=== PATIENT | female | born 1980 | race Caucasian/White ===

== ENCOUNTER 2022-07-16 08:28 | Emergency (ER) | payer MEDICAID, SELFPAY ==
[2022-07-16 08:37] VITALS: BP 131/82; PULSE 91; RESP 18; TEMP 37; O2SAT 97
--- NOTE | 2022-07-16 09:02 | NUR.NOTE ---
Nursing Note: negative for flu A and B, negative for covid per rapid in house.
--- NOTE | 2022-07-16 09:30 | ED.GENADUL_ITS ---
Discharge Plan Disposition Patient Disposition: HOME Condition: Stable Discharge Details Clinical Impression: URI (upper respiratory infection), Cerumen impaction ED Provider: Josemanuel Vincent Home Meds and New Rx's Prescriptions: New benzonatate 200 mg capsule 200 mg PO TID PRN (Reason: cough) Qty: 30 0RF Discharge Instructions Instructions: Impactaci?n de Cerumen (ED), Upper Respiratory Infection (ED) Additional Instructions: At this time your exam and history is consistent with a upper respiratory viral infection. Your symptoms will likely continue over the next 3 to 5 days and then slowly start improving. If you have any significant worsening of your symptoms after 10 days, return of fever, or any further concerns feel free to follow-up after fast, your primary care provider, or local urgent care. Otherwise you may continue to take [id number] medication as needed and Motrin will help with your ear pain. Referrals: Primary Care Provider [Outside] - 1 week (If not improving) Discharge Data Discharge Date/Time-TO BE ENTERED AT DEPARTURE: 07/16/22 10:14 Medical Decision Making Patient presenting to the emergency department for chief complaint of nasal congestion, sore throat and right ear pain. She does state some associated dry cough and generalized malaise with some headache. Physical exam consistent with upper respiratory tract infection likely viral in nature. staffing and scheduling coordinator initiated protocol for antigen testing and patient is negative for strep, influenza, and COVID. Strep testing was sent for culture. Did need to irrigate patient ears due to cerumen impaction which showed no acute signs of infection. Discussed with patient conservative measures for treatment of viral illness along with return and follow-up precautions. After discussion of diagnosis and plan of care patient has no further needs, questions, or concerns and states clear u nderstanding to return to the emergency department for any worsening symptoms. This documentation was generated using [employer] dictation system, please disregard any oddities of phrase or misspellings. HPI General Mode of arrival: ambulatory . Date/Time Provider Initiated Documentation: 07/16/22 08:38 . Information obtained by: patient and RN notes reviewed . History of Present Illness 41 year old F presents to the emergency department with the chief complaint of With ear pain, cough, nasal congestion, described as moderate, Quality is described as aching, and is localized to the right (ear). Patient started experiencing this day(s) (2) and it has been constant. No relieving factors improve symptom(s), No exacerbating factors reported . Patient did receive the following treatments prior to arrival, none Related Data Home Medications Medication Instructions Recorded Confirmed benzonatate 200 mg capsule 200 mg PO TID PRN cough #30 caps 07/16/22 Previous Rx's Medication Instructions Recorded benzonatate 200 mg capsule 200 mg PO TID PRN cough #30 caps 07/16/22 Allergies Allergy/AdvReac Type Severity Reaction Status Date / Time No Known Allergies Allergy Unverified 07/16/22 08:42 General Stated Complaint: Sorethroat ROBBY: 4 Review of Systems Constitutional Constitutional: Denies body ache(s), Denies chills, Denies fever(s), Reports headache(s) and Reports malaise Eyes Eyes: Denies eye discharge ENT Ears, Nose, Mouth, and Throat: Reports as per HPI, Denies ear discharge, Reports otalgia, Reports headache(s), Reports nasal congestion, Reports nasal discharge, Denies neck pain, Reports sore throat and Denies throat swelling Cardiovascular Cardiovascular: Denies chest pain and Denies dyspnea Respiratory Respiratory: Reports cough and Denies dyspnea Musculoskeletal Musculoskeletal: Denies joint swelling and Denies neck pain Integumentary/Breasts Skin/Breast: Denies rash Neurologic Neurologic: Reports headache(s) Allergic/Immunologic Allergic/Immunologic: Denies throat swelling PFSH All Active Problems (Updated 07/16/22 @ 10:05 by Josemanuel Vincent NP) URI (upper respiratory infection) (Acute) Cerumen impaction (Acute) Social History Smoking/Tobacco Use Status: Never Smoking risk assessment performed?: Yes Drug use: Daily Substance use type: marijuana Do you feel safe at home: Yes Do you feel safe in your relationship?: Yes Exam Const General: cooperative, comfortable and no acute distress Orientation: alert and awake HENMT Head: normal to inspection, normocephalic and atraumatic Ears: hearing grossly normal bilaterally and EAC abnormal cerumen impaction bilaterally General nose exam: external nose normal Face and sinus: no erythema Mouth: oral mucosae normal, no drooling, no muffled voice and no trismus Throat: posterior oropharynx normal Neck Neck: normal visual inspection, full ROM, no lymphadenopathy, no meningeal signs, trachea midline and supple Resp Effort & Inspection: normal respiratory effort, able to speak in complete sentences and cough Quality of cough: dry Auscultation: clear to auscultation bilaterally Cardio Rate: regular rate Rhythm: regular rhythm Heart Sounds: S1 normal, S2 normal, normal S1 and S2, no click, no gallops, no murmurs and no rubs Skin General skin exam: no rashes or lesions noted and dry skin (warm) Neuro General: patient alert, patient awake, patient oriented x3, gait normal and moves all extremities Cognition: normal cognition Speech: speech normal Course Vital Signs Vital signs: Vital Signs Temperature 37.0 C 07/16/22 08:37 Pulse 91 H 07/16/22 08:37 Respiratory Rate 18 07/16/22 08:37 Blood Pressure 131/82 07/16/22 08:37 Pulse Oximetry 97 07/16/22 08:37 Temperature 37.0 C 07/16/22 08:37 Temperature Source Oral 07/16/22 08:37 Pulse 91 H 07/16/22 08:37 Respiratory Rate 18 07/16/22 08:37 Respiratory Effort Non-Labored 07/16/22 08:39 Blood Pressure 131/82 07/16/22 08:37 Blood Pressure Position Sitting 07/16/22 08:37 Pulse Oximetry 97 07/16/22 08:37 Oxygen Delivery Method Room Air 07/16/22 08:37 Oxygen Flow Rate 0 07/16/22 08:37 Pain Level 3 07/16/22 08:37 Lab/Test Results Lab/Test Results: POC Strep Test-ALISHA(Rapid) Start: 07/16/22 08:41 Freq: Status: Complete Protocol: Document 07/16/22 08:59 ISIDRA (Rec: 07/16/22 08:59 [email or web address] [id number]) Strep test-ALISHA(Rapid)-POC POC-Strep test-ALISHA (Rapid) Negative POC-Strep test-ALISHA (Rapid) Negative Procedures Ear Wax Removal Both Ears: Cerumenolytic Used: Colace Results: Re-examined: some cerumen remains TM Visible: TM(s) intact, normal appearance Ear Canal: atraumatic Patient Tolerated Procedure: well and no complications Technique: ear canal irrigated and ear canal curetted PAWSS Have you Been Recently Intoxicated or Drunk Within the Last 30 days?: No Have you Ever Experienced Previous Episodes of Alcohol Withdrawal?: No Have you ever Experienced Withdrawal Seizures?: No Have you ever Experienced Delirium Tremens(DT)s?: No Have you ever undergone Alcohol Rehabilitation Treatment (i.e, inpt ot outpatient treatment programs)?: No Have you ever Experienced Blackouts?: No Have you ever Combined Alcohol with other Downers within the last 90 days?: No Have you ever Combined Alcohol with any other Substance of Abuse during the last 90 days?: No Positive Blood Alcohol level on Presentation? [PCS.BAL]: No Evidence of Increased Autonomic Activity (i.e. HR>120, tremor, sweating, agitation, nausea)?: No Result: 0
[2022-07-16] MEDS: Docusate Sodium 100 MG/10 ML CUP PO (10:03)
== END 2022-07-16 10:14 | disposition home or self-care (01) ==
PROVIDERS: Emergency Provider Nurse Practitioner Family
DX: J06.9 Acute upper respiratory infection, unspecified (principal); Z20.822 Contact with and (suspected) exposure to COVID-19; H61.21 Impacted cerumen, right ear
CPT/HCPCS: 87880; 99283

== ENCOUNTER 2023-04-19 10:44 | Emergency (ER) | payer MEDICAID, SELFPAY ==
[2023-04-19 10:52] VITALS: BP 130/87; PULSE 87; RESP 18; TEMP 37.1; O2SAT 99
--- NOTE | 2023-04-19 11:06 | ED.GENADUL_ITS ---
Discharge Plan Disposition Patient Disposition: Home Condition: Stable Discharge Details Clinical Impression: Chronic dental infection Primary Care Provider: Kalpana Aguilera ED Provider: Marci Gautam Home Meds and New Rx's Prescriptions: New amoxicillin-pot clavulanate 875-125 mg tablet 1 tab PO BID 10 Days Qty: 20 0RF No Action benzonatate 200 mg capsule 200 mg PO TID PRN (Reason: cough) Qty: 30 0RF Patient Comments: pt states no long taking 04/19/23 Discharge Instructions Instructions: Dental Abscess (ED) Additional Instructions: You do need to see a dentist. Please call some dentists based on the resources that we have given you. Rinse your mouth out after eating or drinking anything you may gargle with warm salt water. Practice good oral hygiene brush her teeth twice daily, floss. Consider quitting smoking marijuana. Please take Tylenol or Ibuprofen with food every 4-6 hours as needed for pain and swelling. The numbing medication will wear off in approximately 2 hours. Use the benzocaine topical gel thereafter. Follow up with primary care provider in 3-5 days. Return to ED sooner if any worsening or concerns. Increase oral fluids. Referrals: Kalpana Aguilera [Primary Care Provider] - 2 weeks Medical Decision Making 42-year-old female presents to the ER with chief complaint of right molar tender ness and swelling. Patient states that she feels like she has a dental abscess. No trismus, speaking in full sentences no fever or chills. She is a smoker. She reports she does not have a dentist. Denies being on antibiotics in the last few months. No other associated symptoms. Will give Augmentin and HurriCaine gel here in the department. Will prescribe Augmentin and give dental resources. Patient was given a dental block and reports improved pain and analgesia post injection. Please see procedure note. This text was generated using [employer] system, please disregard any od dities of phrase or misspellings. HPI General Mode of arrival: ambulatory . Date/Time Provider Initiated Documentation: 04/19/23 10:51 . Limitations to Documentation: no limitations . Information obtained by: patient, RN notes reviewed and old records reviewed . HPI Narrative: 42-year-old female presents to the ER with chief complaint of right molar tenderness and swelling. Patient states that she feels like she has a dental abscess. No trismus, speaking in full sentences no fever or chills. She is a smoker. She reports she does not have a dentist. Denies being on antibiotics in the last few months. No other associated symptoms. Related Data Home Medications Medication Instructions Recorded Confirmed benzonatate 200 mg capsule 200 mg PO TID PRN cough #30 caps 07/16/22 amoxicillin 875 mg-potassium 1 tab PO BID 10 days #20 tabs 04/19/23 clavulanate 125 mg tablet Previous Rx's Medication Instructions Recorded benzonatate 200 mg capsule 200 mg PO TID PRN cough #30 caps 07/16/22 amoxicillin 875 mg-potassium 1 tab PO BID 10 days #20 tabs 04/19/23 clavulanate 125 mg tablet Allergies Allergy/AdvReac Type Severity Reaction Status Date / Time No Known Allergies Allergy Unverified 04/19/23 10:57 General Stated Complaint: DentalOral ROBBY: 4 Review of Systems All systems reviewed & are unremarkable except as noted in HPI and below Constitutional Constitutional: Reports as per HPI, Denies fever(s) and Denies headache(s) ENT Ears, Nose, Mouth, and Throat: Reports as per HPI, Denies change in voice, Reports dental pain (Right Lower), Denies dysphagia, Reports otalgia (Right), Reports facial pain, Denies headache(s) and Denies nasal congestion Respiratory Respiratory: Reports system reviewed and no additional complaints, except as documented and Denies cough Gastrointestinal Gastrointestinal: Denies dysphagia Neurologic Neurologic: Denies headache(s) PFSH All Active Problems (Updated 04/19/23 @ 11:37 by Marci Gautam NP) Chronic dental infection (Acute) Social History Smoking/Tobacco Use Status: Never Smoking risk assessment performed?: Yes Drug use: Daily Substance use type: marijuana Do you feel safe at home: Yes Do you feel safe in your relationship?: Yes Exam HENMT Teeth and gingiva: caries, gingiva abnormal edematous and poor dentition Teeth image: 1. Dental Karen, Surrounding gingival swelling medial area of fluctuance. Throat: posterior oropharynx normal, tonsils normal and uvula midline Resp Effort & Inspection: normal respiratory effort Auscultation: clear to auscultation bilaterally Cardio Rhythm: regular rhythm Heart Sounds: S1 normal and S2 normal Course Vital Signs Vital signs: Vital Signs Temperature 37.1 C 04/19/23 10:52 Pulse 87 04/19/23 10:52 Respiratory Rate 18 04/19/23 10:52 Blood Pressure 130/87 04/19/23 10:52 Pulse Oximetry 99 04/19/23 10:52 Temperature 37.1 C 04/19/23 10:52 Pulse 87 04/19/23 10:52 Respiratory Rate 18 04/19/23 10:52 Respiratory Effort Normal 04/19/23 10:55 Blood Pressure 130/87 04/19/23 10:52 Blood Pressure Position Sitting 04/19/23 10:52 Pulse Oximetry 99 04/19/23 10:52 Oxygen Delivery Method Room Air 04/19/23 10:52 Oxygen Flow Rate 0 04/19/23 10:52 Pain Level 7 04/19/23 10:52 Procedures Abscess I/D Site: Other (Dental Abscess) Side (if applicable): Right Sedation/analgesia: None Local Anesthetic: Lidocaine 1% Amount of anesthesia used (mL): 0.5 Technique: Needle Aspiration and Incised with #11 Blade Amount of fluid expressed (mL): 0.3 (Bloody, no purulent drainiage expressed) Irrigation: No Packing used?: None Complications: Other (None) Nerve Block Nerve Block 1: Time out performed: No Local Anesthetic: Lidocaine 1% Amount of anesthesia used (mL): 0.5 Side: right Intraoral Nerve Block: other (Right Buccal) Procedure Successful: Yes Patient Tolerated Procedure: well and no complications Complications: none
[2023-04-19] MEDS: Amoxicillin 875/Clav. 125 TAB PO (11:36)
[2023-04-19] MEDS: Benzocaine 20% Gel 30 GM JAR MM (11:36)
== END 2023-04-19 11:45 | disposition home or self-care (01) ==
PROVIDERS: Emergency Provider Registered Nurse Emergency; PCP Nurse Practitioner Family
DX: K08.89 Other specified disorders of teeth and supporting structures (principal); K04.7 Periapical abscess without sinus; F17.210 Nicotine dependence, cigarettes, uncomplicated
CPT/HCPCS: 10060; 99282

== ENCOUNTER 2023-08-19 11:43 | Emergency (ER) | payer MEDICAID, SELFPAY ==
[2023-08-19 11:48] VITALS: BP 162/109; PULSE 91; RESP 15; TEMP 36.6; O2SAT 98
[2023-08-19] MEDS: LORazepam 1 MG TAB PO (14:13)
--- NOTE | 2023-08-19 15:36 | ED.GENADUL_ITS ---
Discharge Plan Disposition Patient Disposition: Home Condition: Stable Discharge Details Clinical Impression: Depression, Anxiety, Elevated blood pressure reading Primary Care Provider: Kalpana Aguilera ED Provider: Kd Barrera Home Meds and New Rx's Prescriptions: New lorazepam [Ativan] 1 mg tablet 0.5 mg PO BID PRN (Reason: anxiety) Qty: 10 0RF Discharge Instructions Instructions: Depression (ED), Anxiety (ED) Additional Instructions: You have been given a prescription for lorazepam. This medicine should only be used intermittently to treat severe anxiety exacerbations. Dose according to label. Please contact your primary care physician and your therapist to arrange follow- up. Call tomorrow. Return to the ER immediately for any worsening or new concerning symptoms. Referrals: [facility] [employer] [Outside] Kalpana Aguilera [Primary Care Provider] - Medical Decision Making 1540 --42-year-old female with history of anxiety and panic attacks in the past, here with severe anxiety and depression. Patient is not suicidal. No acute medical condition identified. Patient does note that she has had diagnostic labs including thyroid function checked in the recent past and were normal. Plan for crisis evaluation. I will give lorazepam 1 mg orally for anxiety. 1618 --patient was assessed by crisis screener. She declined crisis bed placement. Crisis screener agrees with outpatient treatment plan including timely follow-up with her therapist. Patient was reassessed and had significant improvement after lorazepam. I will prescribe short course to be used for severe anxiety. Usual customary discharge instructions were reviewed with the patient. She was encouraged to return at anytime and for worsening or new concerning symptoms. HPI General Mode of arrival: ambulatory . Date/Time Provider Initiated Documentation: 08/19/23 11:59 . Limitations to Documentation: no limitations . Information obtained by: patient . HPI Narrative: 42-year-old female with history of anxiety and panic disorders, here with chief complaint of depression. Patient notes depression has been persistent over the past 2 to 3 weeks. Patient notes her mom 8 years ago around this time of year as did her younger sister. This time he is particularly challenging for her given these losses. She notes that she feels down and also anxious. She is having difficulty sleeping. No hallucinations. No suicidal ideation. Patient has seen a psychiatric counselor but does not have a psychiatrist. She has never been diagnosed with depression. Related Data Home Medications Medication Instructions Recorded Confirmed lorazepam 1 mg tablet (Ativan) 0.5 mg (1/2 x 1 mg) PO BID PRN 08/19/23 anxiety #10 tabs Previous Rx's Medication Instructions Recorded lorazepam 1 mg tablet (Ativan) 0.5 mg (1/2 x 1 mg) PO BID PRN 08/19/23 anxiety #10 tabs Allergies Allergy/AdvReac Type Severity Reaction Status Date / Time No Known Allergies Allergy Unverified 08/19/23 11:51 General Stated Complaint: PsychEval ROBBY: 2 Review of Systems Psychiatric Psychiatric: Reports as per HPI, Reports anxiety and Reports depression PFSH All Active Problems (Updated 08/19/23 @ 16:07 by Kd Barrera MD) Elevated blood pressure reading (Acute) Anxiety (Chronic) Depression (Chronic) Social History Smoking/Tobacco Use Status: Never Smoking risk assessment performed?: Yes Drug use: Daily Substance use type: marijuana Do you feel safe at home: Yes Do you feel safe in your relationship?: Yes Exam Const General: cooperative and no acute distress HENMT Mouth: moist mucous membranes Neck Neck: trachea midline and supple Resp Auscultation: clear to auscultation bilaterally, no rales, no rhonchi and no wheezes Cardio Rate: regular rate and not tachycardic Rhythm: regular rhythm Neuro General: patient alert, patient awake and tone normal Psych Appearance: grossly normal Mental Status: mental status grossly normal and other (depressed and anxious) Speech and Movement: speech and movement normal Mood: other (depressed and anxious) Affect: anxious affect Attitude: cooperative Thought Content: suicidality Insight: insight good Course Vital Signs Vital signs: Vital Signs Temperature 36.6 C 08/19/23 11:48 Pulse 91 H 08/19/23 11:48 Respiratory Rate 15 08/19/23 11:48 Blood Pressure 162/109 H 08/19/23 11:48 Pulse Oximetry 98 08/19/23 11:48 Temperature 36.6 C 08/19/23 11:48 Temperature Source Temporal Artery Scan 08/19/23 11:48 Pulse 91 H 08/19/23 11:48 Respiratory Rate 15 08/19/23 11:48 Respiratory Effort Normal, Non-Labored 08/19/23 14:43 Blood Pressure 162/109 H 08/19/23 11:48 Blood Pressure Position Sitting 08/19/23 11:48 Pulse Oximetry 98 08/19/23 11:48 Oxygen Delivery Method Room Air 08/19/23 11:48 Oxygen Flow Rate 0 08/19/23 11:48 Pain Level 0 08/19/23 11:48
[2023-08-19 16:28] VITALS: BP 124/93; PULSE 73; RESP 18; O2SAT 99
[2023-08-19] MEDS: LORazepam 0.5 MG TAB (16:51)
--- NOTE | 2023-08-20 11:45 | PDOC.MHCN ---
Date of service: 08/19/23 Time of Service: 11:47 PHQ-9 Over the last 2 weeks, how often have you been bothered by any of the following problems? 1. Little interest or pleasure in doing things: nearly every day 2. Feeling down, depressed, or hopeless: nearly every day 3. Trouble falling or staying asleep, or sleeping too much: nearly every day 4. Feeling tired or having little energy: not at all 5. Poor appetite or overeating: more than half the days 6. Feeling bad about yourself - or that you are a failure or have let yourself and your family down: nearly every day 7. Trouble concentrating on things, such as reading the newspaper or watching television: several days 8. Moving or speaking so slowly that other people could have noticed? - Or the opposite - being so fidgety or restless that you have been moving around a lot more than usual: not at all 9. Thoughts that you would be better off or of hurting yourself in some way: not at all Total score: 15 If you checked off any problems, how difficult have these problems made it for you to do your work, take care of things at home, or get along with other people?: extremely difficult PHQ-9 Results: Positive Source: Developed by Drs. Korey Barraza, Daisy Ibarra, Amado Elena and colleagues, with an educational marina from [employer]. Suicide Severity Rate CSSRS Have you wished you were or wished you could go to sleep and not wake up?: No Have you actually had any thoughts of killing yourself?: No CSSRS3 Have you ever done anything, started to do anything or prepared to do anything to end your life?: No Screening Score Total Score: 0 Screening: Negative Mental Health Emergency Note Release [facility] release signed:: Yes Reason for Visit The client presented to the ED on 1209 2022 with complaints of depression which is unfamiliar to her. Provider reports that the significant other was worried as she has a history of anxiety and panic attack. However, the depression is new. The provider gave the client single dose of having to assist and suggested maybe the Care Bed might be a good option. In the last 2 weeks has the pt presented for ES prior to today?: Unknown Client Information Client is: New Well Housed: Yes Non Suicidal Self Injury Current: No History: No Safety Risk/Harm to Self or Others Current Ideation to Harm Self or Others: No Risk: Does risk to harm exist?: No Risk: Low Risk Duty to warn indicated: No Asssessment/Mental Status Appearance: Well groomed Attitude: Cooperative and Guarded Behavior: Unremarkable Speech: Normal Affect: Incongurent with mood Mood: Depressed Thought process: Goal directed Hallucinations: No Delusions: No Attention: Unremarkable Perception: Not impaired Orientation: Fully orientated Memory: Intact Insight: Good Judgement: Good Neurovegetative Symptoms Sleep: Decrease Appetitie: Decrease Interests: Decrease Energy: Decrease Libido: Not applicable Substance Use: Other (Hx of drinking a lot. None in 6 months) Drug Issues: Dependence (Daily use throughout the day. ) Do you use nicotine?: Yes Have you used substances in the last 7 days?: yes, THC Additional Issues: Assaultive/Threatening Behavior: No Medical Concerns: No Client engaged in active self harm w/weapon: No Threatening to run away: No Child reported abuse/neglect: No Voluntarily presenting for services: Yes Domestic violence is a concern: No Extreme Psychosis or extreme behavior is present: No Impression The client is a 42 year old, , female, who lives with her significant other in [facility]. 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 The client reports that she?s been really low lately and usually this time of year she has these lows due to the loss of her mother eight years ago tomorrow, 1122 to cancer as well as the same time of year the loss of her sister due to a car accident. The client reports this year she?s just having a really hard time pulling herself out of it. The client has been seeing a counselor by the name of Bryson who is in private practice in the [place] area for about one year. The client reports symptoms of not wanting to work. Take care of things at home, and ?not feeling myself at all.? She reports a decrease in appetite and sleep, as well as energy and interest. She scored a 19/27 on the PHQ9. The client denied any SI current or by hx. Resources Reosurces reviewed and given:: [facility] and [facility] Plan/Disposition Recommended Disposition: Crisis bed, (declined) No. Plan: The client discharged home with SO with plan to follow up with her PCP for an appointment to discuss medications. Client has an appointment with her therapist 08.20.23. She will check in on 08.20.23 with [facility] to verify appointment was made. The CARE Bed was offered and declined at this time. Person reported agreement to plan: Yes Reports/communication Outcome discussed with: ED/Personnel
== END 2023-08-19 16:29 | disposition home or self-care (01) ==
PROVIDERS: Emergency Provider Student in an Organized Health Care Education/Training Program; PCP Nurse Practitioner Family
DX: F41.9 Anxiety disorder, unspecified (principal); F32.A Depression, unspecified; R03.0 Elevated blood-pressure reading, without diagnosis of hypertension
CPT/HCPCS: 00123; 96127; 99283; 99284

== ENCOUNTER 2023-09-06 01:07 | Outpatient (CLI) | payer MEDICAID, SELFPAY ==
[2023-09-06 13:13] LABS: HCT 42.6 % (36.0-46.0); HGB 14.5 g/dL (11.2-15.7); MCH 32.4 pg (27.0-33.0); MCV 95 fL (80-95); MPV 10.8 fL (8.0-11.0); Platelet Count 204 10^3/uL (130-400); RBC 4.48 10^6/uL (3.93-5.22); RDW 11.4 % (11.7-14.6); RDW-SD 39.9 fL; WBC 7.83 10^3/uL (4.4-10.8)
[2023-09-06 13:30] LABS: Hemoglobin A1C < 4.5 % (<5.7)
[2023-09-06 14:00] LABS: *AMPHETAMINES SCREEN URINE Negative (Negative); *BARBITURATES SCREEN URINE Negative (Negative); *BENZODIAZEPINES SCREEN URINE Negative (Negative); Cannabinoids THC Positive (Negative); Cocaine Screen,Urine Negative (Negative); METHADONE URINE SCREEN Negative (Negative); OPIATES URINE SCREEN Negative (Negative); Tricyclic Antidepressants Negative (Negative)
[2023-09-06 14:14] LABS: Vitamin D 25 Total 17.6 ng/mL (30-100)
[2023-09-06 14:16] LABS: ALT 21 U/L (14-59); AST 25 U/L (15-37); Albumin 4.2 g/dL (3.4-5.0); Alkaline Phosphatase 65 U/L (46-116); Anion Gap 6.9 mmol/L (3-11); BUN 4 mg/dL (7-18); Bilirubin, Total 1.1 mg/dL (0.2-1.0); CO2 30.1 mmol/L (21.0-32.0); CREATININE 0.8 mg/dL (0.55-1.02); Calcium 9.4 mg/dL (8.5-10.1); Chloride 97 mmol/L (98-107); Estimated GFR 95.46 (mL/min/1.73m2); Glucose 147 mg/dL (74-106); Potassium 3.5 mmol/L (3.5-5.1); Sodium 134 mmol/L (136-145); TSH (W/Ref FT4) 1.59 uIU/mL (0.36-3.74); Total Protein 8.6 g/dL (6.4-8.2); Vitamin B12 610 pg/mL (193-986)
[2023-09-07 12:53] LABS: Xylazine, Confirmation Urine Negative ng/mL (<50)
[2023-09-11 11:47] LABS: Fentanyl Interpretation Negative.; Fentanyl by LC-MS/MS Not Detected; Norfentanyl by LC-MS/MS Not Detected
[2023-09-11 15:26] LABS: Estradiol, Mass Spectrometry 428 pg/mL; Estrone 259 pg/mL
== END 2023-09-06 01:08 | disposition home or self-care (01) ==
LOC: LBO 01:07
PROVIDERS: Visit Provider Nurse Practitioner Psychiatric/Mental Health
DX: F10.929 Alcohol use, unspecified with intoxication, unspecified (principal)
CPT/HCPCS: 36415; 80053; 80307; 80375; 82306; 85027; 80354; 82607; 82670; 82679; 83036; 84443; 85025

== ENCOUNTER 2024-10-14 20:20 | Emergency (ER) | payer MEDICAID, SELFPAY ==
[2024-10-14 20:35] VITALS: BP 158/90; PULSE 85; RESP 16; TEMP 36.9; O2SAT 100
[2024-10-14 20:38] VITALS: BP 158/90; PULSE 85; RESP 16; TEMP 36.9; O2SAT 100
--- NOTE | 2024-10-14 20:46 | ED.GENADUL_ITS ---
Discharge Plan Disposition Patient Disposition: Home Condition: Stable Discharge Details Clinical Impression: Pain, dental Primary Care Provider: None,None ED Provider: Marci Gautam Home Meds and New Rx's Prescriptions: No Action No Known Home Meds Discharge Instructions Instructions: Dental Pain ED Additional Instructions: Please use the HurriCaine gel up to 3 times daily as needed for pain. You are given a dental block here in the department which will last about 4 to 6 hours. Please follow-up with the dentist that you had the appointment with. Please take Tylenol or Ibuprofen with food every 4-6 hours as needed for pain and swelling. Please rinse your mouth out after eating or drinking anything, practice good oral hygiene brush her teeth twice daily. Follow up with primary care provider in 3-5 days. Return to ED sooner if any worsening or concerns. Referrals: Primary Care Provider [Outside] - 1 week HPI General Mode of arrival: ambulatory . Date/Time Provider Initiated Documentation: 10/14/24 20:41 . Limitations to Documentation: no limitations . Information obtained by: patient, RN notes reviewed and old records reviewed . HPI Narrative: 43-year-old female has a eroded molar, states that she had a dental appointment yesterday and they were poking around in there. She denies having any drilling done no feelings placed just a screening appointment or a cleaning she reports on her way home that she started having severe pain. She is requesting a dental block. No abscess noted no area of fluctuance. She does endorse smoking marijuana. Related Data Home Medications ?Medication ?Instructions ?Recorded ?Confirmed Unknown [No Known Home Meds] 10/14/24 10/14/24 Allergies Allergy/AdvReac Type Severity Reaction Status Date / Time No Known Allergies Allergy Unverified 10/14/24 20:37 General Stated Complaint: DentalOral ROBBY: 4 Review of Systems ENT Ears, Nose, Mouth, and Throat: Reports as per HPI, Reports dental pain, Denies neck pain, Denies odynophagia, Denies sore throat and Denies throat swelling Gastrointestinal Gastrointestinal: Denies odynophagia Musculoskeletal Musculoskeletal: Denies neck pain Allergic/Immunologic Allergic/Immunologic: Denies throat swelling Exam HENMT Mouth: salivary ducts normal and oropharynx normal Teeth and gingiva: caries and poor dentition Teeth image: 2 1. Eroded down to the dentin just above the gumline, it is dark in color no surrounding fluctuance or abscess noted. Throat: posterior oropharynx normal Course Vital Signs Vital signs: Vital Signs Temperature 36.9 C 10/14/24 20:35 Pulse 85 10/14/24 20:35 Respiratory Rate 16 10/14/24 20:35 Blood Pressure 158/90 H 10/14/24 20:35 Pulse Oximetry 100 10/14/24 20:35 Temperature 36.9 C 10/14/24 20:38 Pulse 85 10/14/24 20:38 Respiratory Rate 16 10/14/24 20:38 Blood Pressure 158/90 H 10/14/24 20:38 Pulse Oximetry 100 10/14/24 20:38 Pain Level 10 10/14/24 20:38 Procedure Nerve Block 1st Nerve Block: Date of Procedure: 10/14/24 Time of procedure: 21:15 Provider that performed the procedure: Marci Gautam Indication: Local pain control Standard Time Out Performed: Yes Patient Consented: Verbally Local Anesthetic: Lidocaine 1% and Bupivicaine 0.5% Amount of anethetic used(mL): 3 Sterility: Non Sterile Laterality: Right Nerve Blocks: other (Dental block, posterior superior alveolar). Procedure Tolerated: Patient tolerated well Procedure Outcome: Successful Medical Decision Making 43-year-old female has a eroded molar, states that she had a dental appointment yesterday and they were poking around in there. She denies having any drilling done no feelings placed just a screening appointment or a cleaning she reports on her way home that she started having severe pain. She is requesting a dental block. No abscess noted no area of fluctuance. She does endorse smoking marijuana. Dental block performed with 0.5% of bupivacaine and 1% lidocaine. Patient tolerated well, anesthesia achieved. She is also using topical HurriCaine gel which she was given here. She appears much more comfortable as when she first came in. Patient discharged with instructions to follow-up with her dentist that she has the appointment with and to continue using the HurriCaine gel take Tylenol ibuprofen. She did get some night Tylenol ibuprofen to go home with. Discussed good oral hygiene and home care. This text was generated using [employer] system, please disregard any oddities of phrase or misspellings. Quality:SDOH Health Related Social Needs: 2 No Data to Display PFSH All Active Problems (Updated 10/14/24 @ 21:21 by Marci Gautam NP) Pain, dental (Acute) Social History Smoking/Tobacco Use Status: Never Smoking risk assessment performed?: Yes Drug use: Daily Substance use type: marijuana Do you feel safe at home: Yes Do you feel safe in your relationship?: Yes
[2024-10-14] MEDS: Benzocaine 20% Gel 30 GM JAR MM (21:04)
[2024-10-14] MEDS: Lidocaine 1% Pres-Free 5 ML VIAL (21:04)
[2024-10-14] MEDS: Bupivacaine 0.5% Pres-Free 30 ML VIAL IJ (21:04)
[2024-10-14] MEDS: Ibuprofen 600 MG TAB (21:28)
[2024-10-14] MEDS: Acetaminophen 500 MG TAB (21:28)
== END 2024-10-14 21:32 | disposition home or self-care (01) ==
LOC: ER 21:25
PROVIDERS: Emergency Provider Registered Nurse Emergency
DX: K08.89 Other specified disorders of teeth and supporting structures (principal)
CPT/HCPCS: 64400; J0665; J2003

== ENCOUNTER 2025-01-24 14:33 | Emergency (ER) | payer MEDICAID, SELFPAY ==
[2025-01-24 14:41] VITALS: BP 137/99; PULSE 88; RESP 20; TEMP 36.9; O2SAT 98
[2025-01-24] MEDS: Diph,Pertuss(Acell),Tet Vac/Pf 0.5 ML SYR IM (15:00)
[2025-01-24] MEDS: Lidocaine 2% Multi-Dose 20 ML VIAL IJ (15:01)
--- NOTE | 2025-01-24 15:17 | W.ED.GENAD ---
Discharge Plan Disposition Patient Disposition: Home Condition: Stable Discharge Details Clinical Impression: Laceration of finger Primary Care Provider: None,None ED Provider: Lindsay Cheney Home Meds and New Rx's Prescriptions: No Action No Known Home Meds Discharge Instructions Instructions: Laceration Repair With Stitches ED Additional Instructions: You were seen in the emergency department today for evaluation of the finger laceration. In our department you had a full physical examination performed and had stitches placed in your laceration. The wound was thoroughly cleaned and your tetanus shot was given. Please keep the area clean and dry, it is okay for soap and water to run over the area but please no soaking or scrubbing. Please reapply antibiotic cream at least once per day. You can wear the splint to prevent bending of the finger which may disrupt the stitches. The stitches need to be removed in 10 days. Please follow-up with your primary care provider in the next few days to discuss this visit and any symptoms that change, worsen, or persist. Thank you for allowing us to be part of your care. HPI General Mode of arrival: ambulatory. Date/Time Provider Initiated Documentation: 01/24/25 14:36. Limitations to Documentation: no limitations. Information obtained by: patient and old records reviewed. HPI Narrative: This is a 44-year-old female patient without significant past medical history presenting for evaluation of a finger laceration. The patient reports that she was working in a barn and the floor gave way, and she partially fell through. She threw out her hand to catch herself and caught the lateral aspect of her right pinky on an unknown object. She reports that she did not injure any other part of her body or fall fully through the floor. She states that she is not experiencing any difficulty or pain when she bends or moves the finger, has not noted any numbness or tingling, and was in her normal state of health prior to arrival. This injury occurred just prior to coming to the hospital and she has not taken any medications for management of pain. Last tetanus shot was 9 years ago. Related Data Home Medications ?Medication ?Instructions ?Recorded ?Confirmed Unknown [No Known Home Meds] 10/14/24 01/24/25 Allergies Allergy/AdvReac Type Severity Reaction Status Date / Time No Known Allergies Allergy Verified 01/24/25 14:40 General Stated Complaint: Laceration ROBBY: 4 Exam Narrative Exam Narrative: Gen: Awake and alert, in no apparent distress HEENT: Non-icteric sclera Neck: Supple Lungs: No apparent respiratory distress, normal respiratory effort. CV: Appears well perfused Abdomen: Non-distended MSK: Moves 4 extremities without apparent limitation in ROM. On the patient's right pinky there is an approximately 1-1/2 cm laceration on the lateral aspect of the proximal phalanx, does cross over the PIP joint. The wound is hemostatic, and superficial, with no visible bone or tendon nor foreign bodies during cleaning. She has full flexion and extension against resistance of this finger, brisk capillary refill, and preserved sensation throughout the finger. Skin: Visualized skin without rashes, cyanosis. Neuro: Normal Gait, no obvious focal deficits or facial asymmetry. Speaks in full, clear sentences. Psych: Appropriate for situation. Course Vital Signs Vital signs: Vital Signs Temperature 36.9 C 01/24/25 14:41 Pulse 88 01/24/25 14:41 Respiratory Rate 20 01/24/25 14:41 Blood Pressure 137/99 H 01/24/25 14:41 Pulse Oximetry 98 01/24/25 14:41 Temperature 36.9 C 01/24/25 14:41 Temperature Source Oral 01/24/25 14:41 Pulse 88 01/24/25 14:41 Respiratory Rate 20 01/24/25 14:41 Blood Pressure 137/99 H 01/24/25 14:41 Blood Pressure Position Sitting 01/24/25 14:41 Pulse Oximetry 98 01/24/25 14:41 Oxygen Delivery Method Room Air 01/24/25 14:41 Oxygen Flow Rate 0 01/24/25 14:41 Pain Level 6 01/24/25 14:41 Procedure Laceration Laceration 1: Date of Procedure: 01/24/25 Time of procedure: 14:50 Provider that performed the procedure: Lindsay Cheney Standard Time Out Performed: No Patient Consented: Verbally Site: hand Side (If applicable): right Description: linear Depth: simple, single layer Local anesthetic: Lidocaine 2% Amount of anesthesia used (mL): 1 Pre-repair:: wound explored, irrigated extensively and deep structures intact Skin layer closed with: nylon Suture size: 4-0 Number of sutures:: 6 Complications: None Medical Decision Making This is a 44-year-old female patient presenting for evaluation of a laceration. Differential includes but is not limited to laceration, the patient's mechanism of injury and physical exam is less concerning for fracture dislocation, and I see no evidence on my exam for neurovascular injury or tendon injury. This is a reassuringly isolated injury. Laceration was repaired as noted above, patient tolerated the procedure well and the wound edges were well-approximated at the completion of the procedure. I do not see any indication at this time to proceed with advanced imaging or laboratory studies. I did provide the patient with a splint to wear to prevent excessive movement and disruption of the stitches. She was counseled on wound care and to have the stitches removed in 10 days, and her tetanus shot was updated. At this time, the patient has had a full medical evaluation and is safe for discharge to home. They are hemodynamically stable, ambulatory, and tolerating PO. They are understanding of the follow-up plan and return precautions. They left our facility without incident. Lindsay Cheney MD Quality:SDMT Health Related Social Needs: No Data to Display [facility] All Active Problems (Updated 01/24/25 @ 15:18 by Lindsay Cheney MD) Laceration of finger (Acute) Social History Smoking/Tobacco Use Status: Never Smoking risk assessment performed?: Yes Drug use: Daily Substance use type: marijuana Do you feel safe at home: Yes Do you feel safe in your relationship?: Yes
== END 2025-01-24 15:29 | disposition home or self-care (01) ==
PROVIDERS: Emergency Provider Emergency Medicine
DX: S61.216A Laceration without foreign body of right little finger without damage to nail, initial encounter (principal); Z23 Encounter for immunization; W13.3XXA Fall through floor, initial encounter; Y93.89 Activity, other specified; Y92.71 Barn as the place of occurrence of the external cause
CPT/HCPCS: 12001; 90471; 90715; 99283; J2003